=== PATIENT | female | born 1975 | race Caucasian/White ===

== ENCOUNTER → 2020-06-28 | Outpatient (CLI) | payer BC ==
--- NOTE | 2020-06-28 13:26 | CT ---
EXAMINATION TYPE: CT abdomen pelvis wo con DATE OF EXAM: 06/28/2020 HISTORY: Hematuria x 2 days last week. Pelvic pain. CT DLP: 741 mGycm. Automated Exposure Control for Dose Reduction was Utilized. TECHNIQUE: CT scan of the abdomen and pelvis is performed without oral or IV contrast. COMPARISON: NONE FINDINGS: Within the limitations of a non-contrast study, the following observations are made. LUNG BASES: No significant abnormality is appreciated. LIVER/GB: Cholecystectomy clips are noted. PANCREAS: No significant abnormality is seen. SPLEEN: No significant abnormality is seen. ADRENALS: No significant abnormality is seen. KIDNEYS: No renal stones or hydronephrosis is seen bilaterally. No intraluminal calculi in the poorly distended bladder BOWEL: Suboptimal evaluation of bowel without enteric contrast. No suspicious small or large bowel di latation is seen. Small bowel feces sign distal ileal loops consistent with delayed passage of ingest ed material to colonic level. 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 GENITAL ORGANS: Anteverted uterus. Some adjacent scattered pelvic phleboliths. LYMPH NODES: No greater than 1cm abdominal or pelvic lymph nodes are appreciated. OSSEOUS STRUCTURES: No significant abnormality is seen. OTHER: No significant additional abnormality is seen. IMPRESSION: Source of patient's hematuria and pelvic pain not identified.
== END ==
LOC: RADCTMAIN 12:30
PROVIDERS: ATTEND Nurse Practitioner Family
DX: R31.9 Hematuria, unspecified (principal); R10.2 Pelvic and perineal pain
CPT/HCPCS: 74176

== ENCOUNTER → 2023-02-19 | Outpatient (CLI) | payer BC ==
--- NOTE | 2023-02-20 09:35 | MM ---
Reason for Exam: Screening (asymptomatic). Last mammogram was performed 1 year(s) and 7 month(s) ago. Patient History: Menarche at age 11. First Full-Term at age 26. Patient has history of breast feeding. Hormonal Contraceptives for 10 years until age 25. Maternal aunt had breast cancer, age 50. Maternal aunt had breast cancer, age 60. Risk Values: Delfina 5 year model risk: 1.0%. NCI Lifetime model risk: 10.2%. Prior Study Comparison: 05/26/2014 Bilateral Screening Mammogram, [facility]. 05/31/2014 Left Diagnostic Mammogram, [facility]. 07/25/2015 Bilateral Screening Mammogram, [facility]. 05/13/2019 Bilateral Screening Mammogram, [facility]. 08/01/2021 Bilateral Screening Mammogram, [facility]. Tissue Density: There are scattered fibroglandular densities. Findings: Analyzed By CAD. Pattern appears symmetrical and stable. No significant interval change is evident. No suspicious groups of microcalcifications, spiculated or lobular masses, architectural distortion or other secondary signs of malignancy are mammographically apparent. Overall Assessment: Benign, BI-RAD 2 Management: Screening Mammogram of both breasts in 1 year. A negative mammogram report should not preclude additional follow up of suspicious palpable abnormalities. Patient should continue monthly self breast exam. A clinical breast exam by your physician is recommended on an annual basis and results should be correlated with mammographic findings. Electronically signed and approved by: Bayron Fishman D.O. Radiologis
== END | disposition home or self-care (01) ==
LOC: RADMAMWWP 10:02
PROVIDERS: ATTEND Family Medicine
DX: Z12.31 Encounter for screening mammogram for malignant neoplasm of breast (principal); Z80.3 Family history of malignant neoplasm of breast
CPT/HCPCS: 77067